=== PATIENT | female | born 1940 | race Hispanic/Latino ===

== ENCOUNTER 2017-09-15 14:33 | Inpatient (IN) | payer MEDICARE ==
[2017-09-15 15:41] LABS: Basophils % (Auto) 0.1 % (0.0-1.8); Eosinophils # (Auto) 0.1 K/mm3 (0.0-0.4); Eosinophils % (Auto) 0.9 % (0.0-4.3); Hematocrit 34.2 % (30.3-42.9); Hemoglobin 11.3 gm/dl (10.1-14.3); Lymphocytes # (Auto) 0.8 K/mm3 (1.2-5.4); Lymphocytes % (Auto) 6.6 % (13.4-35.0); Mean Corpuscular HGB Conc 33 % (30-34); Mean Corpuscular Hemoglobin 27 pg (28-32); Mean Corpuscular Volume 82 fl (79-97); Monocytes # (Auto) 1.3 K/mm3 (0.0-0.8); Platelet Count 385 K/mm3 (140-440); Red Blood Count 4.17 M/mm3 (3.65-5.03); Red Cell Distribution Width 14.1 % (13.2-15.2)
[2017-09-15 15:53] LABS: Calcium 9.4 mg/dL (8.4-10.2)
--- NOTE | 2017-09-15 17:23 | XRay Report ---
FINAL REPORT EXAM: XR CHEST ROUTINE 2V HISTORY: Shortness of breath TECHNIQUE: Frontal and lateral chest radiographs. PRIORS: None. FINDINGS: The lateral aspect of the right lower thorax was not completely included on the frontal view. Atherosclerotic calcifications are seen in the thoracic aorta. The cardiomediastinal silhouette is normal. Mild linear opacities are seen in the lung bases. The lungs are hyperinflated. Bilateral pleural effusions are seen. No pneumothorax. No acute osseous abnormality. IMPRESSION: Small bilateral pleural effusions with bibasilar atelectasis versus pneumonia.
[2017-09-15] MEDS ORDERED: ATROVENT IH ONE (22:48)
[2017-09-15] MEDS ORDERED: LASIX IV ONE (22:48)
[2017-09-15] MEDS ORDERED: PROVENTIL IH ONE (22:48)
[2017-09-15] MEDS ORDERED: LEVAQUIN 750MG/150ML 750 MG/150 ML BAG IV ONE (22:54)
--- NOTE | 2017-09-15 22:56 | Emergency Department Report ---
ED Shortness of Breath HPI - General Chief Complaint: Dyspnea/Respdistress Stated Complaint: EMILIANA Time Seen by Provider: 09/15/17 22:48 Source: patient, EMS Mode of arrival: Wheelchair Limitations: No Limitations - History of Present Illness Initial Comments: 77 yo COUGHING FOR 3 MONTHS NOT RESPONSIVE TO COUGH MEDICATION. PT IS FROM [facility]. SHE WAS GIVEN ANTIBIOTICS AND COUGH MEDICINE BUT THIS DID NOT HELP. SHE REMAINS SOB WITH PERSISTENT COUGH AND WANTS HER XANAX APPROPRIATE MGS REINSTATED. SHE HAS A H/O ASTHMA,COPD,DVT,GERD,ARTHRITIS,[place] 9- 10 YRS AGO,HTN,ANXIETY,PANIC ATTACKS,CHRONIC RENAL DISEASE,COLON CANCER WITHOUT METS,PNEUMONIA,APPENDECTOMY,HYSTERECTOMY,BACK SURGERY,RIGHT KNEE SURGERY MD Complaint: shortness of breath, cough -: Gradual, month(s) (3) Pain Scale: 10 Known History Of: COPD, asthma Associated Symptoms: cough Treatments Prior to Arrival: oxygen - Related Data Home Oxygen Therapy: No Home Medications Medication Instructions Recorded Confirmed Last Taken Ranitidine HCl [Ranitidine 150mg 150 mg PO AC 03/28/14 05/25/17 05/24/17 Cap] Promethazine [Phenergan TAB] 25 mg PO BID 06/10/14 05/25/17 05/24/17 Previous Rx's Medication Instructions Recorded Last Taken Type Ondansetron [Zofran Odt] 4 mg PO TID PRN #20 tab.rapdis 06/10/14 05/24/17 Rx Hydromorphone HCl [Dilaudid] 2 tab PO Q2HR PRN #10 tablet 12/23/16 05/24/17 Rx ALBUTEROL NEB's [Proventil 0.083% 2.5 mg IH Q4HRT PRN #1 nebu 05/31/17 Unknown Rx NEBS] ALPRAZolam [Xanax TAB] 1 mg PO BID PRN #60 tablet 05/31/17 Unknown Rx Clopidogrel [Plavix] 75 mg PO QDAY #30 tablet 05/31/17 Unknown Rx FLUoxetine [PROzac] 40 mg PO BID #120 capsule 05/31/17 Unknown Rx Potassium Chloride [K-Dur] 10 meq PO QDAY #30 tablet 05/31/17 Unknown Rx Rosuvastatin (Nf) [Crestor] 10 mg PO HS #30 tablet 05/31/17 Unknown Rx Allergies Allergy/AdvReac Type Severity Reaction Status Date / Time adhesive Allergy Rash Verified 07/15/14 15:41 Penicillins Allergy Rash Verified 07/15/14 15:41 aspirin [From Percodan] AdvReac Vomiting Verified 07/15/14 15:41 codeine AdvReac Vomiting Verified 07/15/14 15:41 egg AdvReac REFLUX Verified 07/15/14 15:41 haloperidol [From Haldol] AdvReac Unknown Verified 07/15/14 15:41 haloperidol lactate AdvReac Unknown Verified 07/15/14 15:41 [From Haldol] meperidine HCl [From Demerol] AdvReac Itching Verified 07/15/14 15:41 milk AdvReac Vomiting Verified 05/28/16 11:17 oxycodone HCl [From Percodan] AdvReac Vomiting Verified 07/15/14 15:41 oxycodone terephthalate AdvReac Vomiting Verified 07/15/14 15:41 [From Percodan] pentazocine lactate AdvReac Unknown Verified 04/09/14 08:53 [From Talwin] ED Review of Systems ROS: Stated complaint: EMILIANA Other details as noted in HPI Constitutional: denies: chills, fever Eyes: denies: eye pain, eye discharge, vision change ENT: denies: ear pain, throat pain Respiratory: cough, shortness of breath, SOB with exertion, SOB at rest. denies : wheezing Cardiovascular: denies: chest pain, palpitations Endocrine: no symptoms reported Gastrointestinal: denies: abdominal pain, nausea, diarrhea Genitourinary: denies: urgency, dysuria, discharge Musculoskeletal: denies: back pain, joint swelling, arthralgia Skin: denies: rash, lesions Neurological: denies: headache, weakness, paresthesias Psychiatric: anxiety. denies: depression Hematological/Lymphatic: denies: easy bleeding, easy bruising ED Past Medical Hx - Past Medical History Hx Hypertension: Yes Hx CVA: Yes Hx Heart Attack/AMI: Yes (approximatley 9-10 years ago) Hx Congestive Heart Failure: No Hx Deep Vein Thrombosis: Yes Hx GERD: Yes (DR. HAWKINS-GI) Hx Liver Disease: No Hx Renal Disease: Yes (chronic kidney dz) Hx Sickle Cell Disease: No Hx Arthritis: Yes Hx Headaches / Migraines: Yes Hx Seizures: Yes Hx Psychiatric Treatment: Yes (anxiety, panic attacks) Hx Asthma: Yes Hx COPD: Yes Hx HIV: No Additional medical history: Colon cancer without metastases,pneumonia - Surgical History Hx Pacemaker: No Hx Internal Defibrillator: No Hx Appendectomy: Yes Additional Surgical History: hysterectomy. back surgeries/ fusions. right knee surgeries. tonsillectomy. colon surgery? March 2014 - Social History Smoking Status: Former Smoker Substance Use Type: None - Medications Home Medications: Home Medications Medication Instructions Recorded Confirmed Last Taken Type Ranitidine HCl [Ranitidine 150mg 150 mg PO AC 03/28/14 05/25/17 05/24/17 History Cap] Ondansetron [Zofran Odt] 4 mg PO TID PRN #20 tab.rapdis 06/10/14 05/25/17 Rx Promethazine [Phenergan TAB] 25 mg PO BID 06/10/14 05/25/17 05/24/17 History Hydromorphone HCl [Dilaudid] 2 tab PO Q2HR PRN #10 tablet 12/23/16 05/25/1702/02 Rx ALBUTEROL NEB's [Proventil 0.083% 2.5 mg IH Q4HRT PRN #1 nebu 05/31/17 Unknown Rx NEBS] ALPRAZolam [Xanax TAB] 1 mg PO BID PRN #60 tablet 05/31/17 Unknown Rx Clopidogrel [Plavix] 75 mg PO QDAY #30 tablet 05/31/17 Unknown Rx FLUoxetine [PROzac] 40 mg PO BID #120 capsule 05/31/17 Unknown Rx Potassium Chloride [K-Dur] 10 meq PO QDAY #30 tablet 05/31/17 Unknown Rx Rosuvastatin (Nf) [Crestor] 10 mg PO HS #30 tablet 05/31/17 Unknown Rx ED Physical Exam - General Limitations: No Limitations General appearance: alert, in distress - Head Head exam: Present: atraumatic, normocephalic - Eye Eye exam: Present: normal appearance, EOMI - ENT ENT exam: Present: mucous membranes moist - Neck Neck exam: Present: normal inspection, full ROM - Respiratory Respiratory exam: Present: wheezes (BILATERAL), rales (BASES) - Cardiovascular Cardiovascular Exam: Present: regular rate, normal rhythm - GI/Abdominal GI/Abdominal exam: Present: soft. Absent: distended - Rectal Rectal exam: Present: deferred - Extremities Exam Extremities exam: Present: normal inspection, full ROM. Absent: pedal edema - Back Exam Back exam: Present: normal inspection, full ROM - Neurological Exam Neurological exam: Present: alert, oriented X3, CN II-XII intact - Psychiatric Psychiatric exam: Present: normal affect, anxious - Skin Skin exam: Present: warm, dry, intact, normal color ED Course Vital Signs 09/15/17 09/15/17 09/16/17 14:59 22:22 00:10 Temperature 99.6 F 98.2 F Pulse Rate 78 69 Pulse Rate [ 89 Anterior Left Throughout] Respiratory 22 20 Rate Respiratory 24 Rate [Anterior Left Throughout ] Blood Pressure 137/62 Blood Pressure 102/63 [Right] O2 Sat by Pulse 98 99 Oximetry - ABG Interpretation Ph: 7.580 PCO2: 25.6 PO2: 82 Bicarbonate: 24 Interpretation: other (MIXED ACID A,BASE DISORDER) ED Medical Decision Making - Lab Data Result diagrams: 09/15/17 15:19 09/15/17 15:19 - EKG Data -: EKG Interpreted by [place] EKG shows normal: sinus rhythm, axis, intervals, QRS complexes (Q IN V1-V3), ST- T waves - Radiology Data Radiology results: report reviewed (CXR; BILATERAL PLEURAL EFFUSIONS, ATELECTASIS VS PNEUMONIA) Critical Care Time: Yes Critical care time in (mins) excluding proc time.: 30 Critical care attestation.: If time is entered above; I have spent that time in minutes in the direct care of this critically ill patient, excluding procedure time. MIRIAN Critical Care Time: 30MIN ED Disposition Clinical Impression: Anxiety, Pleural effusion Acute CHF Qualifiers: Congestive heart failure type: unspecified congestive heart failure type Qualified Code(s): I50.9 - Heart failure, unspecified Disposition: 09 OP ADMIT IP TO THIS HOSP Is pt being admited?: Yes Does the pt Need Aspirin: No Condition: Stable Instructions: Chronic Bronchitis (ED) Referrals: TERENCE SALDANA MD [Primary Care Provider] - 3-5 Days Time of Disposition: 22:55 (DR HAYDEN PAGED AND CASE REVIEWED AND SHE WILL CALL BACK FOR FURTHER DETAIL ON PT FOR ADMISSION)
[2017-09-15] MEDS ORDERED: ZOFRAN IV ONE (23:47)
[2017-09-15] MEDS ORDERED: TYLENOL PO ONE (23:48)
[2017-09-15] MEDS ORDERED: ATIVAN IV ONE (23:48)
[2017-09-16 00:18] LABS: Creatine Kinase MB 1.2 ng/mL (0.0-4.0)
[2017-09-16 00:42] LABS: Bacteria,Urine 1+ /HPF (Negative); Bilirubin,Urine NEG (Negative); Blood,Urine NEG (Negative); Color,Urine Straw (Yellow); Nitrite,Urine NEG (Negative); Protein,Urine <15 mg/dL mg/dL (Negative); Urobilinogen,Urine < 2.0 mg/dL (<2.0); WBC,Urine < 1.0 /HPF (0.0-6.0)
--- NOTE | 2017-09-16 02:47 | History and Physical Report ---
History of Present Illness Date of examination: 09/16/17 Chief complaint: Shortness of breath History of present illness: 77 yo COUGHING FOR 3 MONTHS NOT RESPONSIVE TO COUGH MEDICATION. PT IS FROM [facility]. SHE WAS GIVEN ANTIBIOTICS AND COUGH MEDICINE BUT THIS DID NOT HELP. SHE REMAINS SOB WITH PERSISTENT COUGH AND WANTS HER XANAX APPROPRIATE MGS REINSTATED. SHE HAS A H/O ASTHMA,COPD,DVT,GERD,ARTHRITIS,[place] 9- 10 YRS AGO,HTN,ANXIETY,PANIC ATTACKS,CHRONIC RENAL DISEASE,COLON CANCER WITHOUT METS,PNEUMONIA,APPENDECTOMY,HYSTERECTOMY,BACK SURGERY,RIGHT KNEE SURGERY Past History Past Medical History: other (Hypertension CVA and [place] CHF DVT gastroesophageal reflux disease CK D status 3 arthritis headaches migraines seizures and anxiety and panic attacks asthma COPD history of colon cancer) Past Surgical History: Other (Hysterectomy and back surgery is status post fusion of her back and right knee surgery tonsillectomy, colon surgery 2013) Social history: full code. denies: smoking, alcohol abuse Family history: no significant family history Medications and Allergies Allergies Allergy/AdvReac Type Severity Reaction Status Date / Time adhesive Allergy Rash Verified 07/15/14 15:41 Penicillins Allergy Rash Verified 07/15/14 15:41 aspirin [From Percodan] AdvReac Vomiting Verified 07/15/14 15:41 codeine AdvReac Vomiting Verified 07/15/14 15:41 egg AdvReac REFLUX Verified 07/15/14 15:41 haloperidol [From Haldol] AdvReac Unknown Verified 07/15/14 15:41 haloperidol lactate AdvReac Unknown Verified 07/15/14 15:41 [From Haldol] meperidine HCl [From Demerol] AdvReac Itching Verified 07/15/14 15:41 milk AdvReac Vomiting Verified 05/28/16 11:17 oxycodone HCl [From Percodan] AdvReac Vomiting Verified 07/15/14 15:41 oxycodone terephthalate AdvReac Vomiting Verified 07/15/14 15:41 [From Percodan] pentazocine lactate AdvReac Unknown Verified 04/09/14 08:53 [From Talwin] Home Medications Medication Instructions Recorded Confirmed Last Taken Type Ranitidine HCl [Ranitidine 150mg 150 mg PO AC 03/28/14 05/25/17 05/24/17 History Cap] Ondansetron [Zofran Odt] 4 mg PO TID PRN #20 tab.rapdis 06/10/14 05/25/17 Rx Promethazine [Phenergan TAB] 25 mg PO BID 06/10/14 05/25/17 05/24/17 History Hydromorphone HCl [Dilaudid] 2 tab PO Q2HR PRN #10 tablet 12/23/16 05/25/1702/02 Rx ALBUTEROL NEB's [Proventil 0.083% 2.5 mg IH Q4HRT PRN #1 nebu 05/31/17 Unknown Rx NEBS] ALPRAZolam [Xanax TAB] 1 mg PO BID PRN #60 tablet 05/31/17 Unknown Rx Clopidogrel [Plavix] 75 mg PO QDAY #30 tablet 05/31/17 Unknown Rx FLUoxetine [PROzac] 40 mg PO BID #120 capsule 05/31/17 Unknown Rx Potassium Chloride [K-Dur] 10 meq PO QDAY #30 tablet 05/31/17 Unknown Rx Rosuvastatin (Nf) [Crestor] 10 mg PO HS #30 tablet 05/31/17 Unknown Rx Review of Systems All systems: negative Exam - Physical Exam Narrative exam: Gen. appearance: Patient lying in bed in no acute distress HEENT: Normocephalic/atraumatic, pupils equal round reactive to light, extra alkaline movement intact, no scleral icterus, no JVD or thyromegaly or nodule, neck is supple, mucous membrane moist, no erythema or exudate Heart: S1-S2, regular rate and rhythm Lungs: crakles bilateral breathing comfortable Abdomen: Positive bowel sounds, nontender, nondistended, no organomegaly Extremities: No edema, cyanosis, clubbing Neuro:: Oriented 3 , cranial nerves II-12 intact, speech, motor intact Skin: No rash, nodules, warm dry - Constitutional Vitals: Temp Pulse Resp BP Pulse Ox 98.4 F 68 16 139/37 100 09/16/17 02:34 09/16/17 02:34 09/16/17 02:34 09/16/17 02:34 09/16/17 02:34 Results - Labs CBC & Chem 7: 09/15/17 15:19 09/15/17 15:19 Labs: Laboratory Last Values WBC 11.8 K/mm3 (4.5-11.0) H 09/15/17 15:19 RBC 4.17 M/mm3 (3.65-5.03) 09/15/17 15:19 Hgb 11.3 gm/dl (10.1-14.3) 09/15/17 15:19 Hct 34.2 % (30.3-42.9) 09/15/17 15:19 MCV 82 fl (79-97) 09/15/17 15:19 MCH 27 pg (28-32) L 09/15/17 15:19 MCHC 33 % (30-34) 09/15/17 15:19 RDW 14.1 % (13.2-15.2) 09/15/17 15:19 Plt Count 385 K/mm3 (140-440) 09/15/17 15:19 Lymph % (Auto) 6.6 % (13.4-35.0) L 09/15/17 15:19 [place] % (Auto) 11.0 % (0.0-7.3) H 09/15/17 15:19 Eos % (Auto) 0.9 % (0.0-4.3) 09/15/17 15:19 Baso % (Auto) 0.1 % (0.0-1.8) 09/15/17 15:19 Lymph # 0.8 K/mm3 (1.2-5.4) L 09/15/17 15:19 [place] # 1.3 K/mm3 (0.0-0.8) H 09/15/17 15:19 Eos # 0.1 K/mm3 (0.0-0.4) 09/15/17 15:19 Baso # 0.0 K/mm3 (0.0-0.1) 09/15/17 15:19 Seg Neutrophils % 81.4 % (40.0-70.0) H 09/15/17 15:19 Seg Neutrophils # 9.6 K/mm3 (1.8-7.7) H 09/15/17 15:19 POC ABG pH 7.580 (7.35-7.45) H 09/15/17 23:09 POC ABG pCO2 25.6 (35-45) L 09/15/17 23:09 POC ABG pO2 82 (80-105) 09/15/17 23:09 POC ABG HCO3 24.0 09/15/17 23:09 POC ABG Total CO2 25 09/15/17 23:09 POC ABG O2 Sat 98 09/15/17 23:09 POC ABG Base Excess 2 09/15/17 23:09 FiO2 21 % 09/15/17 23:09 Sodium 134 mmol/L (137-145) L 09/15/17 15:19 Potassium 4.1 mmol/L (3.6-5.0) 09/15/17 15:19 Chloride 94.8 mmol/L (98-107) L 09/15/17 15:19 Carbon Dioxide 23 mmol/L (22-30) 09/15/17 15:19 Anion Gap 20 mmol/L 09/15/17 15:19 BUN 13 mg/dL (7-17) 09/15/17 15:19 Creatinine 1.3 mg/dL (0.7-1.2) H 09/15/17 15:19 Estimated GFR 40 ml/min 09/15/17 15:19 BUN/Creatinine Ratio 10 % 09/15/17 15:19 Glucose 82 mg/dL (65-100) 09/15/17 15:19 Calcium 9.4 mg/dL (8.4-10.2) 09/15/17 15:19 Total Creatine Kinase 40 units/L (30-135) 09/15/17 23:28 CK-MB (CK-2) 1.2 ng/mL (0.0-4.0) 09/15/17 23:28 CK-MB (CK-2) Rel Index 3.0 (0-4) 09/15/17 23:28 Troponin T 0.026 ng/mL (0.00-0.029) 09/15/17 23:28 NT-Pro-B Natriuret Pep 4718 pg/mL (0-900) H 09/15/17 15:19 Urine Color Straw (Yellow) 09/16/17 00:20 Urine Turbidity Clear (Clear) 09/16/17 00:20 Urine pH 9.0 (5.0-7.0) H 09/16/17 00:20 Ur Specific [place] 1.008 (1.003-1.030) 09/16/17 00:20 Urine Protein <15 mg/dl mg/dL (Negative) 09/16/17 00:20 Urine Glucose (UA) Neg mg/dL (Negative) 09/16/17 00:20 Urine Ketones Neg mg/dL (Negative) 09/16/17 00:20 Urine Blood Neg (Negative) 09/16/17 00:20 Urine Nitrite Neg (Negative) 09/16/17 00:20 Urine Bilirubin Neg (Negative) 09/16/17 00:20 Urine Urobilinogen < 2.0 mg/dL (<2.0) 09/16/17 00:20 Ur Leukocyte Esterase Neg (Negative) 09/16/17 00:20 Urine WBC (Auto) < 1.0 /HPF (0.0-6.0) 09/16/17 00:20 Urine RBC (Auto) 1.0 /HPF (0.0-6.0) 09/16/17 00:20 U Epithel Cells (Auto) < 1.0 /HPF (0-13.0) 09/16/17 00:20 Urine Bacteria (Auto) 1+ /HPF (Negative) 09/16/17 00:20 Assessment and Plan Assessment and plan: Assessment and plan - CHF, acute on chronic diastolic Leukocytosis Diabetes COPD with acute exacerbation hyperlipidemia Depression History of colon cancer Plan Admit to medical floor with telemetry Start IV lasix IV Solu-Medrol Aggressive scheduled and when necessary bronchodilators Inhaled steroids Continue home medications No aspirin due to allery, monitor potassium start dvt prophalaxis, continue appropriate outpatient medications Check fingersticks and initiate insulin sliding scale Echocardiogram showed normal left ventricle systolic function, ejection fraction 60-65%, but with thickened/calcified aortic valve with mild aortic stenosis. Monitor CBC and electrolytes Replace electrolytes when necessary as per protocol GI prophylaxis as ordered Monitor and follow the patient closely
[2017-09-16] MEDS ORDERED: DULCOLAX PR PRN (03:06)
[2017-09-16] MEDS ORDERED: PROVENTIL IH PRN (03:06)
[2017-09-16] MEDS ORDERED: D50W (25GM) Syringe IV PRN (03:06)
[2017-09-16] MEDS ORDERED: XANAX PO PRN ×2 (03:06→03:14)
[2017-09-16] MEDS ORDERED: TYLENOL PO PRN (03:06)
[2017-09-16] MEDS ORDERED: ZOFRAN IV PRN (03:06)
[2017-09-16] MEDS ORDERED: MILK OF MAGNESIA PO PRN (03:06)
[2017-09-16 06:54] LABS: Hematocrit 35.1 % (30.3-42.9); Mean Corpuscular HGB Conc 34 % (30-34); Mean Corpuscular Hemoglobin 28 pg (28-32); Mean Corpuscular Volume 81 fl (79-97); Platelet Count 374 K/mm3 (140-440); Red Blood Count 4.35 M/mm3 (3.65-5.03); Red Cell Distribution Width 14.1 % (13.2-15.2)
[2017-09-16] MEDS: LASIX IV SCH ×2 (06:55→18:08)
[2017-09-16] MEDS: NACL 0.9% 1000 ML 1,000 ML IV SCH (06:56)
[2017-09-16] MEDS: DUONEB *Not for PRN Use IH SCH ×4 (07:05→20:01)
[2017-09-16] MEDS: PULMICORT IH SCH ×3 (07:06→20:02)
[2017-09-16 07:14] LABS: Albumin 3.1 g/dL (3.9-5); Calcium 8.9 mg/dL (8.4-10.2)
[2017-09-16 07:43] LABS: Basophils % (Manual) 0 % (0.0-1.8); Eosinophils % (Manual) 0 % (0.0-4.3); Total Cells Counted 100
[2017-09-16 07:44] LABS: Anisocytosis 1+; Ovalocytes 1+
[2017-09-16] MEDS ORDERED: LOVENOX SUB-Q SCH (10:00)
[2017-09-16] MEDS: LEVAQUIN 750MG/150ML 750 MG/150 ML BAG IV SCH (10:16)
[2017-09-16] MEDS: PLAVIX PO SCH (10:17)
[2017-09-16] MEDS: SENOKOT PO SCH ×2 (10:17→21:11)
[2017-09-16] MEDS: COLACE PO SCH ×2 (10:17→21:10)
[2017-09-16] MEDS: PROzac PO SCH ×2 (10:17→21:12)
[2017-09-16] MEDS: PHENERGAN PO SCH ×2 (10:17→21:11)
[2017-09-16] MEDS: PROTONIX PO SCH (10:17)
[2017-09-16] MEDS: K-DUR PO SCH (10:18)
--- NOTE | 2017-09-16 14:27 | Event Note ---
Date: 09/16/17 Patient was admitted for shortness of breath and being treated for COPD exacerbation. Management according H/P.
[2017-09-16] MEDS: NOVOLOG SUB-Q SCH ×2 (14:31→16:30)
[2017-09-16] MEDS: PERCOCET 5/325 PO PRN (15:47)
[2017-09-17] MEDS: PERCOCET 5/325 PO PRN (00:07)
[2017-09-17] MEDS: AMBIEN PO PRN (00:08)
[2017-09-17] MEDS: NOVOLOG SUB-Q SCH ×5 (00:33→23:14)
[2017-09-17] MEDS: NACL 0.9% 1000 ML 1,000 ML IV SCH ×2 (00:38→21:27)
[2017-09-17] MEDS: DUONEB *Not for PRN Use IH SCH ×4 (02:10→20:53)
[2017-09-17] MEDS: LASIX IV SCH ×2 (05:46→07:48)
[2017-09-17 05:50] LABS: Hematocrit 33.3 % (30.3-42.9); Hemoglobin 11.2 gm/dl (10.1-14.3); Mean Corpuscular HGB Conc 34 % (30-34); Mean Corpuscular Hemoglobin 27 pg (28-32); Mean Corpuscular Volume 80 fl (79-97); Platelet Count 388 K/mm3 (140-440); Red Blood Count 4.17 M/mm3 (3.65-5.03)
[2017-09-17 06:17] LABS: Albumin 3.1 g/dL (3.9-5); Calcium 9.1 mg/dL (8.4-10.2)
[2017-09-17 06:40] LABS: Anisocytosis 1+; Basophils % (Manual) 0 % (0.0-1.8); Eosinophils % (Manual) 0 % (0.0-4.3); Ovalocytes 1+; Total Cells Counted 100
[2017-09-17] MEDS: PULMICORT IH SCH ×2 (08:14→20:30)
--- NOTE | 2017-09-17 08:41 | Progress Note ---
Assessment and Plan Assessment and plan: COPD exacerbation - And is on IV Solu-Medrol, DuoNeb's, nebulizer treatment, Levaquin CHF, acute on chronic diastolic - Patient is on IV Lasix Leukocytosis - Resolved Diabetes - Sliding scale insulin hyperlipidemia - Continue statin GERD - On pantoprazole CORRINE likely vasomotor - We'll decrease the dose of Lasix History of colon cancer DVT prophylaxis -On Lovenox History Interval history: Patient was seen and evaluated this morning. The patient asked her Xanax to be scheduled. Patient's complaining of generalized pain. I have discussed the management plan with the patient and her daughter. Hospitalist Physical - Physical exam Narrative exam: Not in cardiopulmonary distress. The patient appeared well nourished and normally developed. Vital signs as documented. Head exam is unremarkable. No scleral icterus . Neck is without jugular venous distension, thyromegaly, or carotid bruits. Lungs scattered wheezing. Cardiac exam reveals regular rate and Rhythm. First and second heart sounds normal. No murmurs, rubs or gallops. Abdominal exam reveals normal bowel sounds, no masses, no organomegaly and no aortic enlargement. Extremities are nonedematous and both femoral and pedal pulses are normal. MICROBIAL SPECIALIST: Alert and oriented 3. No focal weakness. - Constitutional Vitals: Temp Pulse Resp BP Pulse Ox 98.2 F 68 16 132/56 99 09/17/17 07:40 09/17/17 08:10 09/17/17 08:10 09/17/17 07:40 09/17/17 08:16 Results - Labs CBC & Chem 7: 09/17/17 04:43 09/17/17 04:43 Labs: Laboratory Last Values WBC 9.1 K/mm3 (4.5-11.0) 09/17/17 04:43 RBC 4.17 M/mm3 (3.65-5.03) 09/17/17 04:43 Hgb 11.2 gm/dl (10.1-14.3) 09/17/17 04:43 Hct 33.3 % (30.3-42.9) 09/17/17 04:43 MCV 80 fl (79-97) 09/17/17 04:43 MCH 27 pg (28-32) L 09/17/17 04:43 MCHC 34 % (30-34) 09/17/17 04:43 RDW 14.0 % (13.2-15.2) 09/17/17 04:43 Plt Count 388 K/mm3 (140-440) 09/17/17 04:43 Lymph % (Auto) 6.6 % (13.4-35.0) L 09/15/17 15:19 [place] % (Auto) 11.0 % (0.0-7.3) H 09/15/17 15:19 Eos % (Auto) 0.9 % (0.0-4.3) 09/15/17 15:19 Baso % (Auto) 0.1 % (0.0-1.8) 09/15/17 15:19 Lymph # 0.8 K/mm3 (1.2-5.4) L 09/15/17 15:19 [place] # 1.3 K/mm3 (0.0-0.8) H 09/15/17 15:19 Eos # 0.1 K/mm3 (0.0-0.4) 09/15/17 15:19 Baso # 0.0 K/mm3 (0.0-0.1) 09/15/17 15:19 Add Manual Diff Complete 09/17/17 04:43 Total Counted 100 09/17/17 04:43 Seg Neutrophils % Station Superintendent 09/17/17 04:43 Seg Neuts % (Manual) 96.0 % (40.0-70.0) H 09/17/17 04:43 Band Neutrophils % 0 % 09/17/17 04:43 Lymphocytes % (Manual) 3.0 % (13.4-35.0) L 09/17/17 04:43 Reactive Lymphs % (Man) 0 % 09/17/17 04:43 Monocytes % (Manual) 1.0 % (0.0-7.3) 09/17/17 04:43 Eosinophils % (Manual) 0 % (0.0-4.3) 09/17/17 04:43 Basophils % (Manual) 0 % (0.0-1.8) 09/17/17 04:43 Metamyelocytes % 0 % 09/17/17 04:43 Myelocytes % 0 % 09/17/17 04:43 Promyelocytes % 0 % 09/17/17 04:43 Blast Cells % 0 % 09/17/17 04:43 Nucleated RBC % Not Reportable 09/17/17 04:43 Seg Neutrophils # 9.6 K/mm3 (1.8-7.7) H 09/15/17 15:19 Seg Neutrophils # Man 8.7 K/mm3 (1.8-7.7) H 09/17/17 04:43 Band Neutrophils # 0.0 K/mm3 09/17/17 04:43 Lymphocytes # (Manual) 0.3 K/mm3 (1.2-5.4) L 09/17/17 04:43 Abs React Lymphs (Man) 0.0 K/mm3 09/17/17 04:43 Monocytes # (Manual) 0.1 K/mm3 (0.0-0.8) 09/17/17 04:43 Eosinophils # (Manual) 0.0 K/mm3 (0.0-0.4) 09/17/17 04:43 Basophils # (Manual) 0.0 K/mm3 (0.0-0.1) 09/17/17 04:43 Metamyelocytes # 0.0 K/mm3 09/17/17 04:43 Myelocytes # 0.0 K/mm3 09/17/17 04:43 Promyelocytes # 0.0 K/mm3 09/17/17 04:43 Blast Cells # 0.0 K/mm3 09/17/17 04:43 WBC Morphology Not Reportable 09/17/17 04:43 Hypersegmented Neuts Not Reportable 09/17/17 04:43 Hyposegmented Neuts Not Reportable 09/17/17 04:43 Hypogranular Neuts Not Reportable 09/17/17 04:43 Smudge Cells Not Reportable 09/17/17 04:43 Toxic Granulation Not Reportable 09/17/17 04:43 Toxic Vacuolation Not Reportable 09/17/17 04:43 Dohle Bodies Not Reportable 09/17/17 04:43 Pelger-Huet Anomaly Not Reportable 09/17/17 04:43 Kaden Rods Not Reportable 09/17/17 04:43 Platelet Estimate Appears normal 09/17/17 04:43 Clumped Platelets Not Reportable 09/17/17 04:43 Plt Clumps, EDTA Not Reportable 09/17/17 04:43 Large Platelets Not Reportable 09/17/17 04:43 Giant Platelets Not Reportable 09/17/17 04:43 Platelet Satelliting Not Reportable 09/17/17 04:43 Plt Morphology Comment Not Reportable 09/17/17 04:43 RBC Morphology Not Reportable 09/17/17 04:43 Dimorphic RBCs Not Reportable 09/17/17 04:43 Polychromasia Not Reportable 09/17/17 04:43 Hypochromasia Not Reportable 09/17/17 04:43 Poikilocytosis Not Reportable 09/17/17 04:43 Anisocytosis 1+ 09/17/17 04:43 Microcytosis Not Reportable 09/17/17 04:43 Macrocytosis Not Reportable 09/17/17 04:43 Spherocytes Not Reportable 09/17/17 04:43 Pappenheimer Bodies Not Reportable 09/17/17 04:43 Sickle Cells Not Reportable 09/17/17 04:43 Target Cells Not Reportable 09/17/17 04:43 Tear Drop Cells Not Reportable 09/17/17 04:43 Ovalocytes 1+ 09/17/17 04:43 Helmet Cells Not Reportable 09/17/17 04:43 Tran-Hum[place]ul[place] Bodies Not Reportable 09/17/17 04:43 [place] Rings Not Reportable 09/17/17 04:43 Marine Cells Not Reportable 09/17/17 04:43 Bite Cells Not Reportable 09/17/17 04:43 Crenated Cell Not Reportable 09/17/17 04:43 Elliptocytes Not Reportable 09/17/17 04:43 Acanthocytes (Spur) Not Reportable 09/17/17 04:43 Rouleaux Not Reportable 09/17/17 04:43 Hemoglobin C Crystals Not Reportable 09/17/17 04:43 Schistocytes Not Reportable 09/17/17 04:43 Malaria parasites Not Reportable 09/17/17 04:43 Mal Bodies Not Reportable 09/17/17 04:43 Hem Pathologist Commnt No 09/17/17 04:43 POC ABG pH 7.580 (7.35-7.45) H 09/15/17 23:09 POC ABG pCO2 25.6 (35-45) L 09/15/17 23:09 POC ABG pO2 82 (80-105) 09/15/17 23:09 POC ABG HCO3 24.0 09/15/17 23:09 POC ABG Total CO2 25 09/15/17 23:09 POC ABG O2 Sat 98 09/15/17 23:09 POC ABG Base Excess 2 09/15/17 23:09 FiO2 21 % 09/15/17 23:09 Sodium 136 mmol/L (137-145) L 09/17/17 04:43 Potassium 3.9 mmol/L (3.6-5.0) 09/17/17 04:43 Chloride 94.3 mmol/L (98-107) L 09/17/17 04:43 Carbon Dioxide 26 mmol/L (22-30) 09/17/17 04:43 Anion Gap 20 mmol/L 09/17/17 04:43 BUN 27 mg/dL (7-17) H 09/17/17 04:43 Creatinine 1.7 mg/dL (0.7-1.2) H 09/17/17 04:43 Estimated GFR 29 ml/min 09/17/17 04:43 BUN/Creatinine Ratio 16 % 09/17/17 04:43 Glucose 130 mg/dL (65-100) H 09/17/17 04:43 POC Glucose 107 (70-105) H 09/17/17 06:08 Hemoglobin A1c 5.3 % (4-6) 09/16/17 06:04 Calcium 9.1 mg/dL (8.4-10.2) 09/17/17 04:43 Phosphorus 4.00 mg/dL (2.5-4.5) 09/17/17 04:43 Magnesium 2.00 mg/dL (1.7-2.3) 09/17/17 04:43 Total Bilirubin 0.20 mg/dL (0.1-1.2) 09/17/17 04:43 AST 18 units/L (5-40) 09/17/17 04:43 ALT 28 units/L (7-56) 09/17/17 04:43 Alkaline Phosphatase 90 units/L (35-129) 09/17/17 04:43 Total Creatine Kinase 40 units/L (30-135) 09/15/17 23:28 CK-MB (CK-2) 1.2 ng/mL (0.0-4.0) 09/15/17 23:28 CK-MB (CK-2) Rel Index 3.0 (0-4) 09/15/17 23:28 Troponin T 0.026 ng/mL (0.00-0.029) 09/15/17 23:28 NT-Pro-B Natriuret Pep 4718 pg/mL (0-900) H 09/15/17 15:19 Total Protein 6.1 g/dL (6.3-8.2) L 09/17/17 04:43 Albumin 3.1 g/dL (3.9-5) L 09/17/17 04:43 Albumin/Globulin Ratio 1.0 % 09/17/17 04:43 Urine Color Straw (Yellow) 09/16/17 00:20 Urine Turbidity Clear (Clear) 09/16/17 00:20 Urine pH 9.0 (5.0-7.0) H 09/16/17 00:20 Ur Specific [place] 1.008 (1.003-1.030) 09/16/17 00:20 Urine Protein <15 mg/dl mg/dL (Negative) 09/16/17 00:20 Urine Glucose (UA) Neg mg/dL (Negative) 09/16/17 00:20 Urine Ketones Neg mg/dL (Negative) 09/16/17 00:20 Urine Blood Neg (Negative) 09/16/17 00:20 Urine Nitrite Neg (Negative) 09/16/17 00:20 Urine Bilirubin Neg (Negative) 09/16/17 00:20 Urine Urobilinogen < 2.0 mg/dL (<2.0) 09/16/17 00:20 Ur Leukocyte Esterase Neg (Negative) 09/16/17 00:20 Urine WBC (Auto) < 1.0 /HPF (0.0-6.0) 09/16/17 00:20 Urine RBC (Auto) 1.0 /HPF (0.0-6.0) 09/16/17 00:20 U Epithel Cells (Auto) < 1.0 /HPF (0-13.0) 09/16/17 00:20 Urine Bacteria (Auto) 1+ /HPF (Negative) 09/16/17 00:20
[2017-09-17] MEDS: COLACE PO SCH ×2 (09:13→21:32)
[2017-09-17] MEDS: PLAVIX PO SCH (09:13)
[2017-09-17] MEDS: PROTONIX PO SCH (09:14)
[2017-09-17] MEDS: SENOKOT PO SCH ×2 (09:14→21:32)
[2017-09-17] MEDS: PROzac PO SCH ×2 (09:14→21:32)
[2017-09-17] MEDS: PHENERGAN PO SCH ×2 (09:15→21:32)
[2017-09-17] MEDS: K-DUR PO SCH (09:15)
[2017-09-17] MEDS: LEVAQUIN 750MG/150ML 750 MG/150 ML BAG IV SCH (09:17)
--- NOTE | 2017-09-17 12:09 | Consultation ---
History of Present Illness Consult date: 09/17/17 History of present illness: see the dictated note on he p[atient she is well known to me as I follow her in the office plan to reorder some of her NH meds ie xanax she has been on previously Past History Past Medical History: other (Hypertension CVA and [place] CHF DVT gastroesophageal reflux disease CK D status 3 arthritis headaches migraines seizures and anxiety and panic attacks asthma COPD history of colon cancer) Past Surgical History: Other (Hysterectomy and back surgery is status post fusion of her back and right knee surgery tonsillectomy, colon surgery 2013) Social history: full code. denies: smoking, alcohol abuse Family history: no significant family history Medications and Allergies Allergies Allergy/AdvReac Type Severity Reaction Status Date / Time adhesive Allergy Rash Verified 07/15/14 15:41 Penicillins Allergy Rash Verified 07/15/14 15:41 aspirin [From Percodan] AdvReac Vomiting Verified 07/15/14 15:41 codeine AdvReac Vomiting Verified 07/15/14 15:41 egg AdvReac REFLUX Verified 07/15/14 15:41 haloperidol [From Haldol] AdvReac Unknown Verified 07/15/14 15:41 haloperidol lactate AdvReac Unknown Verified 07/15/14 15:41 [From Haldol] meperidine HCl [From Demerol] AdvReac Itching Verified 07/15/14 15:41 milk AdvReac Vomiting Verified 05/28/16 11:17 oxycodone HCl [From Percodan] AdvReac Vomiting Verified 07/15/14 15:41 oxycodone terephthalate AdvReac Vomiting Verified 07/15/14 15:41 [From Percodan] pentazocine lactate AdvReac Unknown Verified 04/09/14 08:53 [From Talwin] Home Medications Medication Instructions Recorded Confirmed Last Taken Type Ranitidine HCl [Ranitidine 150mg 150 mg PO AC 03/28/14 05/25/17 05/24/17 History Cap] Ondansetron [Zofran Odt] 4 mg PO TID PRN #20 tab.rapdis 06/10/14 05/25/17 Rx Promethazine [Phenergan TAB] 25 mg PO BID 06/10/14 05/25/17 05/24/17 History Hydromorphone HCl [Dilaudid] 2 tab PO Q2HR PRN #10 tablet 12/23/16 05/25/1702/02 Rx ALBUTEROL NEB's [Proventil 0.083% 2.5 mg IH Q4HRT PRN #1 nebu 05/31/17 Unknown Rx NEBS] ALPRAZolam [Xanax TAB] 1 mg PO BID PRN #60 tablet 05/31/17 Unknown Rx Clopidogrel [Plavix] 75 mg PO QDAY #30 tablet 05/31/17 Unknown Rx FLUoxetine [PROzac] 40 mg PO BID #120 capsule 05/31/17 Unknown Rx Potassium Chloride [K-Dur] 10 meq PO QDAY #30 tablet 05/31/17 Unknown Rx Rosuvastatin (Nf) [Crestor] 10 mg PO HS #30 tablet 05/31/17 Unknown Rx Active Meds: Active Medications Acetaminophen (Tylenol) 650 mg PO Q4H PRN PRN Reason: Pain MILD(1-3)/Fever >100.5/MELGAR Albuterol (Proventil) 2.5 mg IH Q3HRT PRN PRN Reason: Shortness Of Breath Albuterol/Ipratropium (Duoneb *Not For Prn Use*) 1 ampul I[facility] Q6HRT [facility] Last Admin: 09/17/17 09:52 Dose: Not Given Alprazolam (Xanax) 1 mg PO BID [facility] Atorvastatin Calcium (Lipitor) 20 mg PO QHS [facility] Last Admin: 09/16/17 21:10 Dose: 20 mg Bisacodyl (Dulcolax) 10 mg ME QDAY PRN PRN Reason: Constipation unrelieved by MOM Budesonide (Pulmicort) 0.5 mg IH Q12HRT [facility] Last Admin: 09/17/17 08:14 Dose: 0.5 mg Clopidogrel Bisulfate (Plavix) 75 mg PO QDAY [facility] Last Admin: 09/17/17 09:13 Dose: 75 mg Dextrose (D50w (25gm) Syringe) 50 ml IV PRN PRN PRN Reason: Hypoglycemia Docusate Sodium (Colace) 100 mg PO BID [facility] Last Admin: 09/17/17 09:13 Dose: 100 mg Enoxaparin Sodium (Lovenox) 40 mg SUB-Q QDAY [facility] Last Admin: 09/17/17 09:15 Dose: 40 mg Fluoxetine HCl (Prozac) 40 mg PO BID [facility] Last Admin: 09/17/17 09:14 Dose: 40 mg Furosemide (Lasix) 40 mg IV BID@0600,1800 [facility] Last Admin: 09/17/17 07:48 Dose: 40 mg Hydromorphone HCl (Dilaudid) 1 mg PO Q6H PRN PRN Reason: Pain , Severe (7-10) Levofloxacin/Dextrose (Levaquin 750mg/150ml) 750 mg in 150 mls @ 100 mls/hr IV Q24HR HALLIE PRN Reason: Protocol Last Admin: 09/17/17 09:17 Dose: 100 mls/hr Sodium Chloride (Nacl 0.9% 1000 Ml) 1,000 mls @ 75 mls/hr IV DIRECT [facility] Last Admin: 09/17/17 00:38 Dose: 75 mls/hr Insulin Aspart (Novolog) 0 units SUB-Q ACHS HALLIE PRN Reason: Protocol Last Admin: 09/17/17 08:00 Dose: Not Given Magnesium Hydroxide (Milk Of Magnesia) 30 ml PO Q4H PRN PRN Reason: Constipation Methylprednisolone Sodium Succinate (Solu-Medrol) 40 mg IV Q8HR [facility] Last Admin: 09/17/17 07:46 Dose: 40 mg Ondansetron HCl (Zofran) 4 mg IV Q8H PRN PRN Reason: N/V unrelieved by Reglan Pantoprazole Sodium (Protonix) 40 mg PO QDAY [facility] Last Admin: 09/17/17 09:14 Dose: 40 mg Potassium Chloride (K-Dur) 40 meq PO QDAY [facility] Last Admin: 09/17/17 09:15 Dose: 40 meq Promethazine HCl (Phenergan) 25 mg PO BID [facility] Last Admin: 09/17/17 09:15 Dose: 25 mg Senna (Senokot) 8.6 mg PO Q12HR [facility] Last Admin: 09/17/17 09:14 Dose: 8.6 mg Zolpidem Tartrate (Ambien) 5 mg PO QHS PRN PRN Reason: Insomnia Last Admin: 09/17/17 00:08 Dose: 5 mg Physical Examination - Vital Signs Vital Signs: Vital Signs Temp Pulse Resp BP Pulse Ox 99.6 F 78 22 137/62 98 09/15/17 14:59 09/15/17 14:59 09/15/17 14:59 09/15/17 14:59 09/15/17 14:59 Results - Laboratory Findings CBC and BMP: 09/17/17 04:43 09/17/17 04:43 Abnormal Lab Findings: Abnormal Labs 09/15/17 09/15/17 09/15/17 15:19 15:19 23:09 WBC 11.8 H MCH 27 L Lymph % (Auto) 6.6 L [place] % (Auto) 11.0 H Lymph # 0.8 L [place] # 1.3 H Seg Neutrophils % 81.4 H Seg Neuts % (Manual) Lymphocytes % (Manual) Seg Neutrophils # 9.6 H Seg Neutrophils # Man Lymphocytes # (Manual) POC ABG pH 7.580 H POC ABG pCO2 25.6 L Sodium 134 L Chloride 94.8 L BUN Creatinine 1.3 H Glucose POC Glucose NT-Pro-B Natriuret Pep 4718 H Total Protein Albumin Urine pH 09/16/17 09/16/17 09/16/17 00:20 06:04 06:04 WBC MCH Lymph % (Auto) [place] % (Auto) Lymph # [place] # Seg Neutrophils % Seg Neuts % (Manual) 99.0 H Lymphocytes % (Manual) 0 L Seg Neutrophils # Seg Neutrophils # Man Lymphocytes # (Manual) 0.0 L POC ABG pH POC ABG pCO2 Sodium 135 L Chloride 93.1 L BUN Creatinine 1.4 H Glucose 135 H POC Glucose NT-Pro-B Natriuret Pep Total Protein Albumin 3.1 L Urine pH 9.0 H 09/16/17 09/17/17 09/17/17 12:01 00:08 04:43 WBC MCH 27 L Lymph % (Auto) [place] % (Auto) Lymph # [place] # Seg Neutrophils % Seg Neuts % (Manual) 96.0 H Lymphocytes % (Manual) 3.0 L Seg Neutrophils # Seg Neutrophils # Man 8.7 H Lymphocytes # (Manual) 0.3 L POC ABG pH POC ABG pCO2 Sodium Chloride BUN Creatinine Glucose POC Glucose 164 H 111 H NT-Pro-B Natriuret Pep Total Protein Albumin Urine pH 09/17/17 09/17/17 04:43 06:08 WBC MCH Lymph % (Auto) [place] % (Auto) Lymph # [place] # Seg Neutrophils % Seg Neuts % (Manual) Lymphocytes % (Manual) Seg Neutrophils # Seg Neutrophils # Man Lymphocytes # (Manual) POC ABG pH POC ABG pCO2 Sodium 136 L Chloride 94.3 L BUN 27 H Creatinine 1.7 H Glucose 130 H POC Glucose 107 H NT-Pro-B Natriuret Pep Total Protein 6.1 L Albumin 3.1 L Urine pH
[2017-09-17] MEDS ORDERED: XANAX PO ONE (16:30)
--- NOTE | 2017-09-17 16:51 | Cat Scan Report ---
FINAL REPORT PROCEDURE: CT head without contrast. TECHNIQUE: Computerized tomography of the head was performed without contrast material. HISTORY: Altered mental status. COMPARISON: CT head 05/23/2016. FINDINGS: There is mild cerebral atrophy. The pichardo matter and white matter appear normal. There are no mass lesions. There is no intracranial hemorrhage. There are no signs of acute infarction. The calvarium appears intact. The mastoid air cells are clear. There is mucosal thickening in the right maxillary sinus. IMPRESSION: Normal study of the brain for age. Chronic right maxillary sinusitis.
[2017-09-17] MEDS ORDERED: LOVENOX SUB-Q SCH (17:08)
[2017-09-17] MEDS ORDERED: XOPENEX IH PRN (20:44)
[2017-09-17] MEDS: DILAUDID PO PRN (21:43)
[2017-09-17] MEDS: XANAX PO SCH (21:50)
[2017-09-17] MEDS ORDERED: XANAX PO SCH (22:00)
[2017-09-18] MEDS: AMBIEN PO PRN (02:02)
[2017-09-18 07:18] LABS: Hematocrit 32.7 % (30.3-42.9); Hemoglobin 11.1 gm/dl (10.1-14.3); Mean Corpuscular HGB Conc 34 % (30-34); Mean Corpuscular Hemoglobin 28 pg (28-32); Mean Corpuscular Volume 81 fl (79-97); Platelet Count 379 K/mm3 (140-440); Red Blood Count 4.03 M/mm3 (3.65-5.03); Red Cell Distribution Width 14.3 % (13.2-15.2)
[2017-09-18 07:19] LABS: Calcium 8.8 mg/dL (8.4-10.2)
[2017-09-18] MEDS: NOVOLOG SUB-Q SCH ×5 (08:02→22:13)
[2017-09-18 08:35] LABS: Anisocytosis 1+; Basophils % (Manual) 0 % (0.0-1.8); Burr Cells Few; Eosinophils % (Manual) 0 % (0.0-4.3); Ovalocytes 1+; Total Cells Counted 100
[2017-09-18] MEDS: XOPENEX IH SCH ×3 (09:02→20:59)
[2017-09-18] MEDS: PULMICORT IH SCH ×2 (09:02→20:58)
[2017-09-18] MEDS: ATROVENT IH SCH ×3 (09:02→20:58)
[2017-09-18] MEDS ORDERED: LASIX IV SCH (10:00)
[2017-09-18] MEDS: NACL 0.9% 1000 ML 1,000 ML IV SCH (11:16)
[2017-09-18] MEDS: LEVAQUIN 750MG/150ML 750 MG/150 ML BAG IV SCH (11:19)
[2017-09-18] MEDS: PLAVIX PO SCH (11:21)
[2017-09-18] MEDS: K-DUR PO SCH (11:21)
[2017-09-18] MEDS: PROzac PO SCH ×2 (11:22→23:00)
[2017-09-18] MEDS: PROTONIX PO SCH (11:22)
[2017-09-18] MEDS: PHENERGAN PO SCH ×2 (11:22→23:00)
[2017-09-18] MEDS: SENOKOT PO SCH ×2 (11:22→23:00)
[2017-09-18] MEDS: COLACE PO SCH ×2 (11:22→23:00)
[2017-09-18] MEDS: XANAX PO SCH ×2 (11:23→23:00)
[2017-09-18] MEDS: LOVENOX SUB-Q SCH (11:23)
--- NOTE | 2017-09-18 14:30 | Progress Note ---
Assessment and Plan Assessment and plan: COPD exacerbation - And is on IV Solu-Medrol, DuoNeb's, nebulizer treatment, Levaquin CHF, acute on chronic diastolic - held Lasix Leukocytosis - Resolved Diabetes - Sliding scale insulin hyperlipidemia - Continue statin GERD - On pantoprazole CORRINE likely vasomotor - We'll decrease the dose of Lasix History of colon cancer DVT prophylaxis -On Lovenox History Interval history: Patient was seen and evaluated this morning. The patient said she still has SOB. Hospitalist Physical - Physical exam Narrative exam: Not in cardiopulmonary distress. The patient appeared well nourished and normally developed. Vital signs as documented. Head exam is unremarkable. No scleral icterus . Neck is without jugular venous distension, thyromegaly, or carotid bruits. Lungs scattered wheezing. Cardiac exam reveals regular rate and Rhythm. First and second heart sounds normal. No murmurs, rubs or gallops. Abdominal exam reveals normal bowel sounds, no masses, no organomegaly and no aortic enlargement. Extremities are nonedematous and both femoral and pedal pulses are normal. HEARING THERAPIST: Alert and oriented 3. No focal weakness. - Constitutional Vitals: Temp Pulse Resp BP Pulse Ox 98.1 F 65 20 165/74 99 09/18/17 13:39 09/18/17 13:39 09/18/17 13:39 09/18/17 13:39 09/18/17 13:39 Results - Labs CBC & Chem 7: 09/18/17 04:38 09/18/17 04:37 Labs: Laboratory Last Values WBC 10.7 K/mm3 (4.5-11.0) 09/18/17 04:38 RBC 4.03 M/mm3 (3.65-5.03) 09/18/17 04:38 Hgb 11.1 gm/dl (10.1-14.3) 09/18/17 04:38 Hct 32.7 % (30.3-42.9) 09/18/17 04:38 MCV 81 fl (79-97) 09/18/17 04:38 MCH 28 pg (28-32) 09/18/17 04:38 MCHC 34 % (30-34) 09/18/17 04:38 RDW 14.3 % (13.2-15.2) 09/18/17 04:38 Plt Count 379 K/mm3 (140-440) 09/18/17 04:38 Lymph % (Auto) 6.6 % (13.4-35.0) L 09/15/17 15:19 [place] % (Auto) 11.0 % (0.0-7.3) H 09/15/17 15:19 Eos % (Auto) 0.9 % (0.0-4.3) 09/15/17 15:19 Baso % (Auto) 0.1 % (0.0-1.8) 09/15/17 15:19 Lymph # 0.8 K/mm3 (1.2-5.4) L 09/15/17 15:19 [place] # 1.3 K/mm3 (0.0-0.8) H 09/15/17 15:19 Eos # 0.1 K/mm3 (0.0-0.4) 09/15/17 15:19 Baso # 0.0 K/mm3 (0.0-0.1) 09/15/17 15:19 Add Manual Diff Complete 09/18/17 04:38 Total Counted 100 09/18/17 04:38 Seg Neutrophils % Tip Stitcher 09/18/17 04:38 Seg Neuts % (Manual) 98.0 % (40.0-70.0) H 09/18/17 04:38 Band Neutrophils % 0 % 09/18/17 04:38 Lymphocytes % (Manual) 0 % (13.4-35.0) L 09/18/17 04:38 Reactive Lymphs % (Man) 0 % 09/18/17 04:38 Monocytes % (Manual) 2.0 % (0.0-7.3) 09/18/17 04:38 Eosinophils % (Manual) 0 % (0.0-4.3) 09/18/17 04:38 Basophils % (Manual) 0 % (0.0-1.8) 09/18/17 04:38 Metamyelocytes % 0 % 09/18/17 04:38 Myelocytes % 0 % 09/18/17 04:38 Promyelocytes % 0 % 09/18/17 04:38 Blast Cells % 0 % 09/18/17 04:38 Nucleated RBC % Not Reportable 09/18/17 04:38 Seg Neutrophils # 9.6 K/mm3 (1.8-7.7) H 09/15/17 15:19 Seg Neutrophils # Man 10.5 K/mm3 (1.8-7.7) H 09/18/17 04:38 Band Neutrophils # 0.0 K/mm3 09/18/17 04:38 Lymphocytes # (Manual) 0.0 K/mm3 (1.2-5.4) L 09/18/17 04:38 Abs React Lymphs (Man) 0.0 K/mm3 09/18/17 04:38 Monocytes # (Manual) 0.2 K/mm3 (0.0-0.8) 09/18/17 04:38 Eosinophils # (Manual) 0.0 K/mm3 (0.0-0.4) 09/18/17 04:38 Basophils # (Manual) 0.0 K/mm3 (0.0-0.1) 09/18/17 04:38 Metamyelocytes # 0.0 K/mm3 09/18/17 04:38 Myelocytes # 0.0 K/mm3 09/18/17 04:38 Promyelocytes # 0.0 K/mm3 09/18/17 04:38 Blast Cells # 0.0 K/mm3 09/18/17 04:38 WBC Morphology Not Reportable 09/18/17 04:38 Hypersegmented Neuts Not Reportable 09/18/17 04:38 Hyposegmented Neuts Not Reportable 09/18/17 04:38 Hypogranular Neuts Not Reportable 09/18/17 04:38 Smudge Cells Not Reportable 09/18/17 04:38 Toxic Granulation Not Reportable 09/18/17 04:38 Toxic Vacuolation Not Reportable 09/18/17 04:38 Dohle Bodies Not Reportable 09/18/17 04:38 Pelger-Huet Anomaly Not Reportable 09/18/17 04:38 Kaden Rods Not Reportable 09/18/17 04:38 Platelet Estimate Appears normal 09/18/17 04:38 Clumped Platelets Not Reportable 09/18/17 04:38 Plt Clumps, EDTA Not Reportable 09/18/17 04:38 Large Platelets Not Reportable 09/18/17 04:38 Giant Platelets Not Reportable 09/18/17 04:38 Platelet Satelliting Not Reportable 09/18/17 04:38 Plt Morphology Comment Not Reportable 09/18/17 04:38 RBC Morphology Not Reportable 09/18/17 04:38 Dimorphic RBCs Not Reportable 09/18/17 04:38 Polychromasia Not Reportable 09/18/17 04:38 Hypochromasia Not Reportable 09/18/17 04:38 Poikilocytosis Not Reportable 09/18/17 04:38 Anisocytosis 1+ 09/18/17 04:38 Microcytosis Not Reportable 09/18/17 04:38 Macrocytosis Not Reportable 09/18/17 04:38 Spherocytes Not Reportable 09/18/17 04:38 Pappenheimer Bodies Not Reportable 09/18/17 04:38 Sickle Cells Not Reportable 09/18/17 04:38 Target Cells Not Reportable 09/18/17 04:38 Tear Drop Cells Not Reportable 09/18/17 04:38 Ovalocytes 1+ 09/18/17 04:38 Helmet Cells Not Reportable 09/18/17 04:38 Tran-Gideon Bodies Not Reportable 09/18/17 04:38 [place] Rings Not Reportable 09/18/17 04:38 Marine Cells Few 09/18/17 04:38 Bite Cells Not Reportable 09/18/17 04:38 Crenated Cell Not Reportable 09/18/17 04:38 Elliptocytes Few 09/18/17 04:38 Acanthocytes (Spur) Not Reportable 09/18/17 04:38 Rouleaux Not Reportable 09/18/17 04:38 Hemoglobin C Crystals Not Reportable 09/18/17 04:38 Schistocytes Not Reportable 09/18/17 04:38 Malaria parasites Not Reportable 09/18/17 04:38 Mal Bodies Not Reportable 09/18/17 04:38 Hem Pathologist Commnt No 09/18/17 04:38 POC ABG pH 7.580 (7.35-7.45) H 09/15/17 23:09 POC ABG pCO2 25.6 (35-45) L 09/15/17 23:09 POC ABG pO2 82 (80-105) 09/15/17 23:09 POC ABG HCO3 24.0 09/15/17 23:09 POC ABG Total CO2 25 09/15/17 23:09 POC ABG O2 Sat 98 09/15/17 23:09 POC ABG Base Excess 2 09/15/17 23:09 FiO2 21 % 09/15/17 23:09 Sodium 129 mmol/L (137-145) L D 09/18/17 04:37 Potassium 5.2 mmol/L (3.6-5.0) H D 09/18/17 04:37 Chloride 93.0 mmol/L (98-107) L 09/18/17 04:37 Carbon Dioxide 22 mmol/L (22-30) 09/18/17 04:37 Anion Gap 19 mmol/L 09/18/17 04:37 BUN 33 mg/dL (7-17) H 09/18/17 04:37 Creatinine 1.6 mg/dL (0.7-1.2) H 09/18/17 04:37 Estimated GFR 31 ml/min 09/18/17 04:37 BUN/Creatinine Ratio 21 % 09/18/17 04:37 Glucose 88 mg/dL (65-100) 09/18/17 04:37 POC Glucose 191 (70-105) H 09/18/17 12:48 Hemoglobin A1c 5.3 % (4-6) 09/16/17 06:04 Calcium 8.8 mg/dL (8.4-10.2) 09/18/17 04:37 Phosphorus 4.00 mg/dL (2.5-4.5) 09/17/17 04:43 Magnesium 2.00 mg/dL (1.7-2.3) 09/17/17 04:43 Total Bilirubin 0.20 mg/dL (0.1-1.2) 09/17/17 04:43 AST 18 units/L (5-40) 09/17/17 04:43 ALT 28 units/L (7-56) 09/17/17 04:43 Alkaline Phosphatase 90 units/L (35-129) 09/17/17 04:43 Total Creatine Kinase 40 units/L (30-135) 09/15/17 23:28 CK-MB (CK-2) 1.2 ng/mL (0.0-4.0) 09/15/17 23:28 CK-MB (CK-2) Rel Index 3.0 (0-4) 09/15/17 23:28 Troponin T 0.026 ng/mL (0.00-0.029) 09/15/17 23:28 NT-Pro-B Natriuret Pep 4718 pg/mL (0-900) H 09/15/17 15:19 Total Protein 6.1 g/dL (6.3-8.2) L 09/17/17 04:43 Albumin 3.1 g/dL (3.9-5) L 09/17/17 04:43 Albumin/Globulin Ratio 1.0 % 09/17/17 04:43 Urine Color Straw (Yellow) 09/16/17 00:20 Urine Turbidity Clear (Clear) 09/16/17 00:20 Urine pH 9.0 (5.0-7.0) H 09/16/17 00:20 Ur Specific [place] 1.008 (1.003-1.030) 09/16/17 00:20 Urine Protein <15 mg/dl mg/dL (Negative) 09/16/17 00:20 Urine Glucose (UA) Neg mg/dL (Negative) 09/16/17 00:20 Urine Ketones Neg mg/dL (Negative) 09/16/17 00:20 Urine Blood Neg (Negative) 09/16/17 00:20 Urine Nitrite Neg (Negative) 09/16/17 00:20 Urine Bilirubin Neg (Negative) 09/16/17 00:20 Urine Urobilinogen < 2.0 mg/dL (<2.0) 09/16/17 00:20 Ur Leukocyte Esterase Neg (Negative) 09/16/17 00:20 Urine WBC (Auto) < 1.0 /HPF (0.0-6.0) 09/16/17 00:20 Urine RBC (Auto) 1.0 /HPF (0.0-6.0) 09/16/17 00:20 U Epithel Cells (Auto) < 1.0 /HPF (0-13.0) 09/16/17 00:20 Urine Bacteria (Auto) 1+ /HPF (Negative) 09/16/17 00:20
[2017-09-18 16:56] LABS: Calcium 8.8 mg/dL (8.4-10.2)
[2017-09-18] MEDS: DILAUDID PO PRN (23:11)
[2017-09-19] MEDS: NACL 0.9% 1000 ML 1,000 ML IV SCH (00:12)
[2017-09-19] MEDS: AMBIEN PO PRN (01:41)
[2017-09-19] MEDS: XOPENEX IH SCH ×4 (02:19→15:17)
[2017-09-19] MEDS: DILAUDID PO PRN (07:21)
[2017-09-19] MEDS: NOVOLOG SUB-Q SCH ×2 (07:30→10:30)
[2017-09-19] MEDS: PULMICORT IH SCH (07:33)
[2017-09-19] MEDS: ATROVENT IH SCH ×2 (07:33→13:10)
--- NOTE | 2017-09-19 08:23 | Consultation ---
HISTORY OF PRESENT ILLNESS: This is a 77-year-old white female that is admitted to [facility] because of variety of medical problems. She presented to the hospital with difficulty with standing, bilateral leg weakness. She has been coughing for 3 months, been given antibiotics, began to have panic attacks, high levels of anxiety. She had a prior history of having gastric reflux surgery and back surgery. She has also had bilateral knee surgeries. She has been in the senior care for about 2 years now. Some of this is related to the fact her daughter at age 58 from myocardial infarction, and she has no family members to take care of her. She has been to [facility] for about 2 years now. I see her in the office intermittently for this problem and she is being followed by me for this in the past. I took history from her. She states she is still having very high levels of anxiety and did inquire as to whether she can be placed back on her Xanax. She states she feels dizzy at times, has trouble standing, falls over easily, is forgetful, but it should be mentioned, she does recognize me and knows my name, is quite appropriate. 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 ALLERGIES: She has allergies to PENICILLIN, ADHESIVE TAPE, ASPIRIN, CODEINE, EGG and HALOPERIDOL. FAMILY HISTORY: Her daughter, Lawrence, at age 58. She had 1 son who lived in [place] that of hepatitis and she had another son, Aguila, who in this hospital as a result of sepsis, but he was formerly a paraplegic due to a fall at home. She has two daughters, both of whom are in good health. PHYSICAL EXAMINATION: VITAL SIGNS: On my examination, her blood pressure is 114/72, pulse rate 80, respirations 18. NEUROLOGIC: She is alert and responsive. Speech is clear. Affect is appropriate. Cranial nerves are intact. The patient does not have any slurring of speech. She recognizes me well. She has full ocular movements. She is not dizzy. She does not have any nystagmus on lateral gaze. She has equal airport operations manager strength. No tremors or asterixis. She is slightly tremulous and nervous at present time. Motor tone is good in the upper extremities. She is able to eat a full lunch and swallows well. She does have bilateral leg weakness due to orthopedic problems, primarily in the hips and knees. IMPRESSION: 1. Chronic obstructive pulmonary disease, asthma. 2. Rule out recurrent pneumonia. 3. Diabetes. 4. Variety of medical problems including hypertension, prior history of transient ischemic attack, stroke. RECOMMENDATIONS: Restart her Xanax. I will check a CT scan of the head. We will follow the patient with you. JOB# [id number] LAZARA/NTS
[2017-09-19] MEDS: LEVAQUIN 750MG/150ML 750 MG/150 ML BAG IV SCH (10:11)
[2017-09-19] MEDS: SENOKOT PO SCH (10:11)
[2017-09-19] MEDS: LOVENOX SUB-Q SCH (10:11)
[2017-09-19] MEDS: PROTONIX PO SCH (10:12)
[2017-09-19] MEDS: PLAVIX PO SCH (10:12)
[2017-09-19] MEDS: K-DUR PO SCH (10:12)
[2017-09-19] MEDS: COLACE PO SCH (10:12)
[2017-09-19] MEDS: XANAX PO SCH (10:12)
[2017-09-19] MEDS: PROzac PO SCH (10:12)
[2017-09-19] MEDS: PHENERGAN PO SCH (10:12)
--- NOTE | 2017-09-19 11:17 | Consultation ---
History of Present Illness Consult date: 09/19/17 History of present illness: went over the CT of the brain and there is no acute stroke only age related changes are present..... there is moderate degree of right maxillary sinus disease nor surgical problem as sinus is patent Past History Past Medical History: other (Hypertension CVA and CO CHF DVT gastroesophageal reflux disease CK D status 3 arthritis headaches migraines seizures and anxiety and panic attacks asthma COPD history of colon cancer) Past Surgical History: Other (Hysterectomy and back surgery is status post fusion of her back and right knee surgery tonsillectomy, colon surgery 2013) Social history: full code. denies: smoking, alcohol abuse Family history: no significant family history Medications and Allergies Allergies Allergy/AdvReac Type Severity Reaction Status Date / Time adhesive Allergy Rash Verified 07/15/14 15:41 Penicillins Allergy Rash Verified 07/15/14 15:41 aspirin [From Percodan] AdvReac Vomiting Verified 07/15/14 15:41 codeine AdvReac Vomiting Verified 07/15/14 15:41 egg AdvReac REFLUX Verified 07/15/14 15:41 haloperidol [From Haldol] AdvReac Unknown Verified 07/15/14 15:41 haloperidol lactate AdvReac Unknown Verified 07/15/14 15:41 [From Haldol] meperidine HCl [From Demerol] AdvReac Itching Verified 07/15/14 15:41 milk AdvReac Vomiting Verified 05/28/16 11:17 oxycodone HCl [From Percodan] AdvReac Vomiting Verified 07/15/14 15:41 oxycodone terephthalate AdvReac Vomiting Verified 07/15/14 15:41 [From Percodan] pentazocine lactate AdvReac Unknown Verified 04/09/14 08:53 [From Talwin] Home Medications Medication Instructions Recorded Confirmed Last Taken Type Ranitidine HCl [Ranitidine 150mg 150 mg PO AC 03/28/14 05/25/17 05/24/17 History Cap] Ondansetron [Zofran Odt] 4 mg PO TID PRN #20 tab.rapdis 06/10/14 05/25/17 Rx Promethazine [Phenergan TAB] 25 mg PO BID 06/10/14 05/25/17 05/24/17 History Hydromorphone HCl [Dilaudid] 2 tab PO Q2HR PRN #10 tablet 12/23/16 05/25/1702/02 Rx ALBUTEROL NEB's [Proventil 0.083% 2.5 mg IH Q4HRT PRN #1 nebu 05/31/17 Unknown Rx NEBS] ALPRAZolam [Xanax TAB] 1 mg PO BID PRN #60 tablet 05/31/17 Unknown Rx Clopidogrel [Plavix] 75 mg PO QDAY #30 tablet 05/31/17 Unknown Rx FLUoxetine [PROzac] 40 mg PO BID #120 capsule 05/31/17 Unknown Rx Potassium Chloride [K-Dur] 10 meq PO QDAY #30 tablet 05/31/17 Unknown Rx Rosuvastatin (Nf) [Crestor] 10 mg PO HS #30 tablet 05/31/17 Unknown Rx Active Meds: Active Medications Acetaminophen (Tylenol) 650 mg PO Q4H PRN PRN Reason: Pain MILD(1-3)/Fever >100.5/MELGAR Alprazolam (Xanax) 0.25 mg PO Q12HR [facility] Last Admin: 09/19/17 10:12 Dose: 0.25 mg Atorvastatin Calcium (Lipitor) 20 mg PO QHS [facility] Last Admin: 09/18/17 23:00 Dose: 20 mg Bisacodyl (Dulcolax) 10 mg AL QDAY PRN PRN Reason: Constipation unrelieved by MOM Budesonide (Pulmicort) 0.5 mg IH Q12HRT [facility] Last Admin: 09/19/17 07:33 Dose: 0.5 mg Clopidogrel Bisulfate (Plavix) 75 mg PO QDAY [facility] Last Admin: 09/19/17 10:12 Dose: 75 mg Dextrose (D50w (25gm) Syringe) 50 ml IV PRN PRN PRN Reason: Hypoglycemia Docusate Sodium (Colace) 100 mg PO BID [facility] Last Admin: 09/19/17 10:12 Dose: 100 mg Enoxaparin Sodium (Lovenox) 30 mg SUB-Q QDAY [facility] Last Admin: 09/19/17 10:11 Dose: 30 mg Fluoxetine HCl (Prozac) 40 mg PO BID [facility] Last Admin: 09/19/17 10:12 Dose: 40 mg Hydromorphone HCl (Dilaudid) 1 mg PO Q6H PRN PRN Reason: Pain , Severe (7-10) Last Admin: 09/19/17 07:21 Dose: 1 mg Levofloxacin/Dextrose (Levaquin 750mg/150ml) 750 mg in 150 mls @ 100 mls/hr IV Q24HR [facility] PRN Reason: Protocol Last Admin: 09/19/17 10:11 Dose: 100 mls/hr Sodium Chloride (Nacl 0.9% 1000 Ml) 1,000 mls @ 75 mls/hr IV DIRECT [facility] Last Admin: 09/19/17 00:12 Dose: 75 mls/hr Insulin Aspart (Novolog) 0 units SUB-Q ACHS [facility] PRN Reason: Protocol Last Admin: 09/19/17 07:30 Dose: Not Given Ipratropium [place] (Atrovent) 0.5 mg IH TIDRT [facility] Last Admin: 09/19/17 07:33 Dose: 0.5 mg Levalbuterol HCl (Xopenex) 1.25 mg IH Q8HRT [facility] Last Admin: 09/19/17 07:33 Dose: 1.25 mg Magnesium Hydroxide (Milk Of Magnesia) 30 ml PO Q4H PRN PRN Reason: Constipation Methylprednisolone Sodium Succinate (Solu-Medrol) 40 mg IV Q8HR [facility] Last Admin: 09/19/17 06:22 Dose: 40 mg Ondansetron HCl (Zofran) 4 mg IV Q8H PRN PRN Reason: N/V unrelieved by Reglan Pantoprazole Sodium (Protonix) 40 mg PO QDAY [facility] Last Admin: 09/19/17 10:12 Dose: 40 mg Potassium Chloride (K-Dur) 40 meq PO QDAY [facility] Last Admin: 09/19/17 10:12 Dose: 40 meq Promethazine HCl (Phenergan) 25 mg PO BID [facility] Last Admin: 09/19/17 10:12 Dose: 25 mg Senna (Senokot) 8.6 mg PO Q12HR [facility] Last Admin: 09/19/17 10:11 Dose: 8.6 mg Zolpidem Tartrate (Ambien) 5 mg PO QHS PRN PRN Reason: Insomnia Last Admin: 09/19/17 01:41 Dose: 5 mg Physical Examination - Vital Signs Vital Signs: Vital Signs Temp Pulse Resp BP Pulse Ox 99.6 F 78 22 137/62 98 09/15/17 14:59 09/15/17 14:59 09/15/17 14:59 09/15/17 14:59 09/15/17 14:59 Results - Laboratory Findings CBC and BMP: 09/18/17 04:38 09/18/17 16:25 Abnormal Lab Findings: Abnormal Labs 09/15/17 09/15/17 09/15/17 15:19 15:19 23:09 WBC 11.8 H MCH 27 L Lymph % (Auto) 6.6 L [place] % (Auto) 11.0 H Lymph # 0.8 L [place] # 1.3 H Seg Neutrophils % 81.4 H Seg Neuts % (Manual) Lymphocytes % (Manual) Seg Neutrophils # 9.6 H Seg Neutrophils # Man Lymphocytes # (Manual) POC ABG pH 7.580 H POC ABG pCO2 25.6 L Sodium 134 L Potassium Chloride 94.8 L BUN Creatinine 1.3 H Glucose POC Glucose NT-Pro-B Natriuret Pep 4718 H Total Protein Albumin Urine pH 09/16/17 09/16/17 09/16/17 00:20 06:04 06:04 WBC MCH Lymph % (Auto) [place] % (Auto) Lymph # [place] # Seg Neutrophils % Seg Neuts % (Manual) 99.0 H Lymphocytes % (Manual) 0 L Seg Neutrophils # Seg Neutrophils # Man Lymphocytes # (Manual) 0.0 L POC ABG pH POC ABG pCO2 Sodium 135 L Potassium Chloride 93.1 L BUN Creatinine 1.4 H Glucose 135 H POC Glucose NT-Pro-B Natriuret Pep Total Protein Albumin 3.1 L Urine pH 9.0 H 09/16/17 09/17/17 09/17/17 12:01 00:08 04:43 WBC MCH 27 L Lymph % (Auto) [place] % (Auto) Lymph # [place] # Seg Neutrophils % Seg Neuts % (Manual) 96.0 H Lymphocytes % (Manual) 3.0 L Seg Neutrophils # Seg Neutrophils # Man 8.7 H Lymphocytes # (Manual) 0.3 L POC ABG pH POC ABG pCO2 Sodium Potassium Chloride BUN Creatinine Glucose POC Glucose 164 H 111 H NT-Pro-B Natriuret Pep Total Protein Albumin Urine pH 09/17/17 09/17/17 09/17/17 04:43 06:08 12:08 WBC MCH Lymph % (Auto) [place] % (Auto) Lymph # [place] # Seg Neutrophils % Seg Neuts % (Manual) Lymphocytes % (Manual) Seg Neutrophils # Seg Neutrophils # Man Lymphocytes # (Manual) POC ABG pH POC ABG pCO2 Sodium 136 L Potassium Chloride 94.3 L BUN 27 H Creatinine 1.7 H Glucose 130 H POC Glucose 107 H 108 H NT-Pro-B Natriuret Pep Total Protein 6.1 L Albumin 3.1 L Urine pH 09/17/17 09/18/17 09/18/17 21:54 04:37 04:38 WBC MCH Lymph % (Auto) [place] % (Auto) Lymph # [place] # Seg Neutrophils % Seg Neuts % (Manual) 98.0 H Lymphocytes % (Manual) 0 L Seg Neutrophils # Seg Neutrophils # Man 10.5 H Lymphocytes # (Manual) 0.0 L POC ABG pH POC ABG pCO2 Sodium 129 L D Potassium 5.2 H D Chloride 93.0 L BUN 33 H Creatinine 1.6 H Glucose POC Glucose 137 H NT-Pro-B Natriuret Pep Total Protein Albumin Urine pH 09/18/17 09/18/17 09/18/17 12:48 16:25 16:46 WBC MCH Lymph % (Auto) [place] % (Auto) Lymph # [place] # Seg Neutrophils % Seg Neuts % (Manual) Lymphocytes % (Manual) Seg Neutrophils # Seg Neutrophils # Man Lymphocytes # (Manual) POC ABG pH POC ABG pCO2 Sodium 134 L Potassium Chloride BUN 29 H Creatinine 1.5 H Glucose 128 H POC Glucose 191 H 152 H NT-Pro-B Natriuret Pep Total Protein Albumin Urine pH 09/19/17 06:00 WBC MCH Lymph % (Auto) [place] % (Auto) Lymph # [place] # Seg Neutrophils % Seg Neuts % (Manual) Lymphocytes % (Manual) Seg Neutrophils # Seg Neutrophils # Man Lymphocytes # (Manual) POC ABG pH POC ABG pCO2 Sodium Potassium Chloride BUN Creatinine Glucose POC Glucose 117 H NT-Pro-B Natriuret Pep Total Protein Albumin Urine pH
[2017-09-19 11:52] LABS: Calcium 8.9 mg/dL (8.4-10.2)
--- NOTE | 2017-09-19 12:05 | Discharge Summary ---
Providers - Providers Date of Admission: 09/16/17 03:06 Date of discharge: 09/19/17 Attending physician: SHANIKA MURDOCK MD 09/17/17 08:37 Consult to Dietitian/Nutrition [CONS] Routine Physician Instructions: Reason For Exam: Reason for Consult: Malnutrition Primary care physician: TERENCE GORE Hospitalization Reason for admission: Copd exacerbation, Anxiety disorder Condition: Stable Pertinent studies: Chest x-ray - Small bilateral pleural effusions with bibasilar atelectasis versus pneumonia. CT head - Normal for age Hospital course: 77-year-old female with past medical history significant for hypertension, anxiety, panic attacks, COPD, history of colon cancer, presented to the emergency department complaining of cough for the last 3 months responding with cough syrup. Patient's came from [facility]. Patient was admitted to the floor and she was managed for COPD exacerbation with IV antibiotics, Solu-Medrol, nebulizer treatment and her anxiety medications were restarted. Patient was also complaining generalized pain and continued her pain medication. Patient's shortness of breath and cough was getting better and discharged in stable condition back to half-way. Appropriate medications were reviewed and updated at the time of discharge. Patient's primary care physician is Dr. Gore who saw her while she was inpatient. Disposition: [id number] [facility] Time spent for discharge: 31 minutes - Discharge Diagnoses (1) Anxiety Status: Acute (2) COPD exacerbation Status: Acute (3) Benzodiazepine withdrawal Status: Acute Core Measure Documentation - Palliative Care Palliative Care/ Comfort Measures: Not Applicable - Core Measures Any of the following diagnoses?: none Exam - Physical Exam Narrative exam: Not in cardiopulmonary distress. The patient appeared well nourished and normally developed. Vital signs as documented. Head exam is unremarkable. No scleral icterus . Neck is without jugular venous distension, thyromegaly, or carotid bruits. Lungs scattered wheezing. Cardiac exam reveals regular rate and Rhythm. First and second heart sounds normal. No murmurs, rubs or gallops. Abdominal exam reveals normal bowel sounds, no masses, no organomegaly and no aortic enlargement. Extremities are nonedematous and both femoral and pedal pulses are normal. POULTRYMAN: Alert and oriented 3. No focal weakness. - Constitutional Vitals: Temp Pulse Resp BP Pulse Ox 97.4 F L 78 18 164/63 96 01/01/18 07:43 09/19/17 07:44 09/19/17 07:44 09/19/17 07:43 09/19/17 07:43 Plan Activity: advance as tolerated Weight Bearing Status: Weight Bear as Tolerated Diet: low cholesterol, low salt Follow up with: TERENCE GORE MD [Primary Care Provider] - 7 Days Prescriptions: Levofloxacin [Levaquin TAB] 500 mg PO QDAY #5 tablet Prednisone [predniSONE 10 mg (6-Day Pack, 21 Tabs)] 10 mg PO .TAPER #1 tab.ds.pk
[2017-09-19 15:09] VITALS: BP 130/49
== END 2017-09-19 17:33 | DRG 682 ==
LOC: ED 14:33 → 3A 09-16 03:06
PROVIDERS: ADMIT Internal Medicine Geriatric Medicine; ATTEND Internal Medicine
PROC: 4A033R1 Measurement of Arterial Saturation, Peripheral, Percutaneous Approach (ICD-10-PCS; principal; 2017-09-15)
DX: N17.0 Acute kidney failure with tubular necrosis (principal); I50.33 Acute on chronic diastolic (congestive) heart failure; I13.0 Hypertensive heart and chronic kidney disease with heart failure and stage 1 through stage 4 chronic kidney disease, or unspecified chronic kidney disease; J44.1 Chronic obstructive pulmonary disease with (acute) exacerbation; F19.939 Other psychoactive substance use, unspecified with withdrawal, unspecified; E78.5 Hyperlipidemia, unspecified; G43.909 Migraine, unspecified, not intractable, without status migrainosus; E11.22 Type 2 diabetes mellitus with diabetic chronic kidney disease; N18.3 Chronic kidney disease, stage 3 (moderate); F32.9 Major depressive disorder, single episode, unspecified; K21.9 Gastro-esophageal reflux disease without esophagitis; M19.90 Unspecified osteoarthritis, unspecified site; F41.0 Panic disorder [episodic paroxysmal anxiety]; Z85.038 Personal history of other malignant neoplasm of large intestine; Z88.0 Allergy status to penicillin; Z88.6 Allergy status to analgesic agent; Z86.718 Personal history of other venous thrombosis and embolism; Z88.5 Allergy status to narcotic agent; Z91.012 Allergy to eggs; Z91.018 Allergy to other foods; Z91.048 Other nonmedicinal substance allergy status; I25.2 Old myocardial infarction; Z90.49 Acquired absence of other specified parts of digestive tract; Z90.710 Acquired absence of both cervix and uterus; Z87.01 Personal history of pneumonia (recurrent); Z79.899 Other long term (current) drug therapy; Z98.1 Arthrodesis status; Z87.891 Personal history of nicotine dependence; Z86.73 Personal history of transient ischemic attack (TIA), and cerebral infarction without residual deficits
CPT/HCPCS: 36415; 70450; 71020; 80048; 80053; 81001; 82550; 82553; 82803; 82962; 83036; 83735; 83880; 84100; 84484; 85007; 85025; 93005; 93010; 94640; 94644; 94760; 96374; 96375; A9270-GY; J1650; J1815; J1940; J1956; J2060; J2405; J2920; J2930; J7030; Q0169